=== PATIENT | male | born 1985 | race Caucasian/White ===

== ENCOUNTER 2018-04-21 16:15 | Emergency (ER) | payer OTHER ==
[2018-04-21 16:33] VITALS: BP 137/90; PULSE 65; TEMP 97.9; BMI 33.2
[2018-04-21] MEDS ORDERED: IBUPROFEN 600 MG TABLET (FP) PO ONE ×2 (16:39→16:48)
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
== END 2018-04-21 16:57 | disposition home or self-care (01) ==
LOC: FER 16:15
DX: S29.012A Strain of muscle and tendon of back wall of thorax, initial encounter (principal); V43.52XA Car driver injured in collision with other type car in traffic accident, initial encounter; Y93.89 Activity, other specified; Y92.410 Unspecified street and highway as the place of occurrence of the external cause
CPT/HCPCS: 99281-25

== ENCOUNTER 2020-04-23 13:02 | Emergency (ER) | payer OTHER | END 2020-04-23 13:21 | disposition home or self-care (01) | LOC: JVIRT 13:02 | DX: U07.1 COVID-19 (principal) | CPT/HCPCS: C9803; G2012-GT; Q3014-GT; U0003 ==